=== PATIENT | female | born 2000 | race Caucasian/White ===

== ENCOUNTER 2023-05-31 03:48 | Inpatient (IN) | payer SELFPAY ==
[~2023-05-31] VITALS: Ht 162.6 cm; Wt 71.4 kg
[2023-05-31] VITALS (27 sets, daily range): BP systolic 72–125; BP diastolic 39–84; PULSE 75–115; TEMP 97.7–98.5
[~2023-05-31 03:48] MED LIST: TRI-LINYAH 35 M1 TAB PO
--- NOTE | 2023-05-31 04:11 | NUR ---
THE PATIENT CAME INTO [facility] VIA WHEELCHAIR. C/O CTX EVERY 3-5 MINUTES. PT DENIES LOSS OF FLUID OR BLOODY SHOW. SVE IS 6/80/-1 WITH A BULGING BAG. PT REQUESTS EPIDURAL WHENEVER SHE CAN HAVE IT. NOTIFIED PHYSICIAN OF PAITENTS ARRIVAL. ADMISSION ORDERS RCVD. PLAN OF CARE DISCUSSED WITH PATIENT. PT VERBALIZED UNDERSTANDING.
[2023-05-31] MEDS ORDERED: LR 1,000 ML IV SCH (04:15)
[2023-05-31] MEDS ORDERED: ROPivacaine PF 0.2% 200 ML IV ONE (04:32)
[2023-05-31 04:43] LABS: BASO % 0.4 % (0.0-2.0); EOS % 0.2 % (0.0-4.0); GRAN # 5.8 K/mm3 (1.4-6.5); GRAN % 68.5 % (42.2-75.2); HEMOGLOBIN 10.2 g/dl (12.5-16.0); LYMPH # 1.9 K/mm3 (1.2-3.4); LYMPH % 22.6 % (20.0-51.0); MEAN CELL VOLUME 82 fl (80.0-100.0); MEAN CORPUSCULAR HEMOGLOBIN 27 pg (27-31); MEAN CORPUSCULAR HGB CONC 33 g/dl (33.0-37.0); MEAN PLATELET VOLUME 10.6 fl (7.4-10.4); MONO # 0.6 K/mm3 (0.1-0.6); MONO % 7.5 % (1.7-9.3); PLATELET COUNT 238 K/mm3 (130-400); RED BLOOD COUNT 3.84 M/mm3 (4.10-5.30); REDCELL DISTRIBUTION WIDTH-CV 13.3 % (11.5-14.5)
--- NOTE | 2023-05-31 04:47 | NUR ---
PT SITTING AT BEDSIDE FOR EPIDURAL PLACEMENT. AIMEE GIRON AT BEDSIDE PREPPED PATIENT FOR EPIDURAL. PT AGREES TO PROCEDURE. AIMEE GIRON PROCEEDS. 0447: TEST DOSE ADMINISTERED PER AIMEE GIRON PT TOLERATED PROCEDURE VERY WELL. PT REPOSITIONED TO WEDGE LEFT AT THIS TIME. CALL LIGHT WITHIN REACH. NO OTHER CONCERNS AT THIS TIME.
[2023-05-31] MEDS ORDERED: PNV-SELECT1 TAB PO (05:05)
[2023-05-31] MEDS ORDERED: diphenhydrAMINE 25 MG CAP PO PRN (05:15)
[2023-05-31] MEDS ORDERED: ePHEDrine 50 MG/10 ML VIAL IV PRN (05:15)
[2023-05-31] MEDS ORDERED: Naloxone 0.4 MG/ML VIAL IV PRN ×2 (05:15→09:15)
[2023-05-31] MEDS ORDERED: diphenhydrAMINE 50 MG/ML 1 ML VIAL IV PRN (05:15)
[2023-05-31] MEDS ORDERED: Ondansetron 4 MG/2 ML VIAL IV PRN (05:15)
[2023-05-31 05:18] LABS: HEMATOCRIT 31.3 % (37.0-47.0)
--- NOTE | 2023-05-31 06:10 | NUR ---
REPORT GIVEN TO RASHMI RAY.
--- NOTE | 2023-05-31 06:27 | NUR ---
0627PT CALLS OUT STATING SHE FEELS LIGHTHEADED, AND NAUSEOUS. THIS RN REPORTS TO BEDSIDE. BLOOD PRESSURE IS 72/39. MIRANDA RN AT BEDSIDE WELL. PT LAID BACK IN BED. EPHEDRINE GIVEN AT THIS TIME. FLUID BOLUS STARTED. 0630PT STATES SHE FEELS BETTER. 0632BLOOD PRESSURE TAKEN. 104/62. THIS RN REMAINS AT BEDSIDE.
[2023-05-31] MEDS ORDERED: LR & Oxytocin 500 ML IV SCH (06:45)
--- NOTE | 2023-05-31 06:52 | NUR ---
0652SVE AT THIS TIME BY THIS RN. WITH A BULGING BAG OF WATER.
--- NOTE | 2023-05-31 07:55 | NUR ---
0755PT CALLS OUT SAYING SHE THINKS HER WATER BROKE. 0756THIS RN AT BEDSIDE TO ASSESS. THIS RN CAN VISUALLY SEE PT'S WATER HAS BROKE. MODERATE AMOUNT OF CLEAR FLUID NOTED. EFM TRACING CAT I. PT VITAL SIGNS STABLE.
--- NOTE | 2023-05-31 08:49 | NUR ---
0835DR GOODPASTURE AT BEDSIDE. SVE AT THIS TIME. /+2. NURSERY NURSE AND CHARGE NURSE NOTIFIED. 0837ROOM AND SUPPLIES SET UP FOR DELIVERY. 0840FOLEY REMOVED AT THIS TIME. 0842DR GOODPASTURE BACK AT BEDSIDE. CHARGE NURSE AND NURSERY NURSE ALSO AT BEDSIDE. ROOM AND BED SET UP FOR IMPENDING DELIVERY. 0843PT BEGAN PUSHING AT THIS TIME. 0849SVD OF VIABLE FEMALE INFANT PER DR LUGO. INFANT PLACED ON MATERNAL ABDOMEN. CARE ASSUMED BY NURSERY. 0853SVD OF PLACENTA AT THIS TIME PER DR LUGO. PERIURETHRAL LACERATION NOTED PER DR LUGO. NO REPAIR REQUIRED. FUNDUS FIRM AT U. LOCHIA WNL. PT VITAL SIGNS STABLE. 0857ROOM AND BED PUT BACK TOGETHER. PERICARE PERFORMED. ICE PACK PLACED ON PERINEUM. PT COMFORTABLE IN BED. FUNDUS FIRM AT U. LOCHIA WNL. PT VITAL SIGNS STABLE.
[2023-05-31] MEDS ORDERED: Witch Hazel 50% Pads Bulk TUB TP PRN (09:15)
[2023-05-31] MEDS ORDERED: Acetaminophen 500 MG TAB PO SCH (09:15)
[2023-05-31] MEDS ORDERED: Ibuprofen 800 MG TAB PO SCH (09:15)
[2023-05-31] MEDS ORDERED: Magnes Hydrox (MOM) 80 MG/ML 30 ML CUP PO PRN (09:15)
[2023-05-31] MEDS ORDERED: Mag/Al Hydrox/Simeth Susp 30 ML CUP PO PRN (09:15)
[2023-05-31] MEDS ORDERED: Measles/Mumps/Rubella Virus Vaccine Live w Diluent 0.5 ML VIAL SQ SCH (09:15)
[2023-05-31] MEDS ORDERED: Phenylephrine/Mineral Oil/Petrolatum 57 GM TUBE RC PRN (09:15)
[2023-05-31] MEDS ORDERED: Loratadine 10 MG TAB PO PRN (09:15)
[2023-05-31] MEDS ORDERED: Sennosides/Docusate 8.6-50 MG TAB PO SCH (17:00)
[2023-05-31] MEDS ORDERED: traZODone 50 MG TAB PO PRN (21:00)
[2023-06-01 04:30] VITALS: BP 118/83; PULSE 77; TEMP 98.3
[2023-06-01 08:30] VITALS: BP 116/93; PULSE 73; TEMP 98
--- NOTE | 2023-06-01 09:32 | NUR ---
Initial visit attempt; Physician with family, Pie Maker left card offering congratulations and God's blessings for the of their daughter. Pie Maker also left information regarding the availability of Spiritual Care at our hospital.
[2023-06-01] MEDS ORDERED: IBU800 M1 PO (12:27)
== END 2023-06-01 12:55 | disposition home or self-care (01) | DRG 807 ==
LOC: LDRO 03:48 → LDR 04:11 → OB 12:20
PROVIDERS: Obstetrics & Gynecology; ADMIT Student in an Organized Health Care Education/Training Program
PROC: 10E0XZZ Delivery of Products of Conception, External Approach (ICD-10-PCS; principal; 2023-05-31)
DX: O48.0 Post-term pregnancy (principal); Z37.0 Single live birth; O99.02 Anemia complicating childbirth; O99.344 Other mental disorders complicating childbirth; D64.9 Anemia, unspecified; F41.9 Anxiety disorder, unspecified; Z86.16 Personal history of COVID-19; Z3A.40 40 weeks gestation of pregnancy; Z23 Encounter for immunization
CPT/HCPCS: J2590; J2795; J7120